=== PATIENT | female | born 1975 | race Caucasian/White ===

== ENCOUNTER 2020-07-17 10:48 | Day surgery (SDC) | payer MEDICARE, MEDICAID ==
[2020-07-17] VITALS (13 sets, daily range): BP systolic 124–156; BP diastolic 73–93
[~2020-07-17] VITALS: Ht 162.6 cm; Wt 106.1 kg
[~2020-07-17 10:48] MED LIST: CALC-642 PO; HALO20TA7 PO; HYDR50TA65 PO; LEVO137T21 PO; LITH300C PO; MULT-785 PO; OLAN15TA17 PO; TRIH5TAB3 PO; VALA500T33 PO; albuterol 2.5 MG/3 ML nebule NEB ONE; cefazolin/dext.iso 2gm/100ml 100 ML IV ONE; famotidine 20mg tablet PO ONE; ringers solution, lacted 1,000 ML IV SCH
[2020-07-17] MEDS ORDERED: cloNIDine hcl/PF 100mcg/ml inj ONE (15:16)
[2020-07-17] MEDS ORDERED: ROPIVAcaine 0.5% (5mg/ml) 30ml vial ONE (15:16)
[2020-07-17] MEDS ORDERED: sevoflurane 250ml liquid IH ONE (15:37)
[2020-07-17] MEDS ORDERED: midazolam 1 mg/ML 2ml injection ONE (15:37)
[2020-07-17] MEDS ORDERED: propofol inj 20 ML IV ONE (15:37)
[2020-07-17] MEDS ORDERED: fentaNYL /PF 50mcg/ml 5ml ampule ONE (15:37)
[2020-07-17] MEDS ORDERED: bacitracin 15gm ointment TP ONE (15:46)
[2020-07-17] MEDS ORDERED: BUPIVAcaine/PF 2.5 mg/ml (0.25%) 30ml vial ONE (15:46)
[2020-07-17] MEDS ORDERED: meperidine/PF 25mg/ml syringe IV PRN ×3 (16:15)
[2020-07-17] MEDS ORDERED: morphine 4 MG/ML inj SYRINge IV PRN (16:15)
[2020-07-17] MEDS ORDERED: ondansetron/PF 4mg/2ml inj IV PRN (16:15)
[2020-07-17] MEDS ORDERED: proCHLORperazine 10 MG/2 ml inj IV PRN (16:15)
[2020-07-17] MEDS ORDERED: morphine 2 MG/ML inj. syringe IV PRN (16:15)
[2020-07-17] MEDS ORDERED: ringers solution, lacted 1,000 ML IV SCH (16:15)
[2020-07-17] MEDS ORDERED: dexamethasone sod phosphate 4mg/ml inj. ONE (17:17)
--- NOTE | 2020-07-17 19:26 | NUR ---
PT PIVOT TO W/C TO BATHROOM FOR VOID. INSTRUCTIONS GIVEN AND GONE OVER W/PT AND PTS FATHER STRESSING NON WEIGHT BEARING ON PTS RIGHT LEG, BOTH VERBALIZED UNDERSTANDING. PT D/CD TO HOME VIA W/OUT TO PRIVATE VEHICLE W/O INCIDENT. Addendum: 07/17/20 at 1955 by Marci Carrero RN Amended: Links added.
--- NOTE | 2020-07-17 20:24 | NUR ---
CALLED DR BERNABE, ORDERS RECEIVED FOR PT TO PUT ON BOOT AND OKAY TO USE SEQUENTIAL DEVICES. CALLED PTS FATHER KELSEA DIAZ AND UPDATED BOTH NEW ORDERS. HE VERBALIZED UNDERSTANDING AND TOLD PT WELL, HE WAS WITH PT PLACING ON BOOT. INSTRUCTED THEM BOTH TO CALL DR BERNABE W/ANY QUESTIONS OR CONCERNS. Addendum: 07/17/20 at 2026 by Marci Carrero RN Amended: Links added.
== END 2020-07-17 19:26 | disposition home or self-care (01) ==
LOC: PAS 10:48 → EDSTATUS 13:15 → PAS 19:26
PROVIDERS: ATTEND Podiatrist Foot & Ankle Surgery
DX: M19.071 Primary osteoarthritis, right ankle and foot (principal); M20.11 Hallux valgus (acquired), right foot; M20.21 Hallux rigidus, right foot; M21.629 Bunionette of unspecified foot; Z68.41 Body mass index [BMI] 40.0-44.9, adult; E66.9 Obesity, unspecified; Z72.0 Tobacco use; M79.671 Pain in right foot
CPT/HCPCS: 28297; 28730; 73620; 76000; 82948; A6223; C1713; J0735; J1100; J2250; J2704; J3010; J3490; A4618; A6449; A7000; J2795; J7120